=== PATIENT | female | born 1990 | race Two or more races ===

== ENCOUNTER → 2022-10-27 | Outpatient (CLI) | payer BC, SELFPAY ==
[2022-10-30 12:08] LABS: Chlamydia By Nucleic Acid AMP Negative (Negative); Gonococcus By Nucleic Acid AMP Negative (Negative)
[2022-11-05 16:09] LABS: HPV APTIMA, High Risk Negative (Negative)
== END | disposition home or self-care (01) ==
LOC: LABSPEC 15:05
PROVIDERS: Referring Provider Registered Nurse; Visit Provider Registered Nurse
DX: Z01.419 Encounter for gynecological examination (general) (routine) without abnormal findings (principal); Z11.3 Encounter for screening for infections with a predominantly sexual mode of transmission
CPT/HCPCS: 87491; 87591; 87624; 88175; G0145

== ENCOUNTER → 2022-11-02 | Outpatient (CLI) | payer BC, SELFPAY ==
[2022-11-02 12:57] LABS: T4 Free Direct 0.99 ng/dL (0.76-1.46)
[2022-11-02 13:29] LABS: HIV - WCH Non-Reactive (Nonreactive); Hepatitis C Antibody Non-Reactive (Nonreactive); Syphilis Antibodies Non-reactive
[2022-11-03 14:09] LABS: HSV 1 IgG < 0.91 index (0.00-0.90); HSV 2 IgG 1.87 index (0.00-0.90)
== END | disposition home or self-care (01) ==
LOC: PAVLAB 11:50
PROVIDERS: Referring Provider Registered Nurse; Visit Provider Registered Nurse
DX: Z01.419 Encounter for gynecological examination (general) (routine) without abnormal findings (principal); Z11.3 Encounter for screening for infections with a predominantly sexual mode of transmission; R63.8 Other symptoms and signs concerning food and fluid intake
CPT/HCPCS: 36415; 84439; 84443; 86695; 86696; 86703; 86780; 86803